=== PATIENT | male | born 1975 | race Caucasian/White ===

== ENCOUNTER 2018-02-21 18:44 | Observation (INO) ==
--- NOTE | 2018-02-21 19:07 | Emergency Department Note ---
Disposition Clinical Impression: Hypokalemia, Hypomagnesemia, Hypocalcemia Disposition: Admitted As Inpatient Condition: Fair Time of Disposition: 23:39 Chest Pain HPI - General Chief Complaint: ED Chest Pain Stated Complaint: "Stabbing Pain between shoulder blades, SOB" Time Seen by Provider: 02/21/18 18:49 Source: patient Limitations: no limitations Vital Signs Reviewed: Yes Nursing Notes Reviewed: Yes - History of Present Illness HPI Narrative: 42-year-old male presents from home for evaluation of intermittent sharp stabbing pain between his shoulder blades and left side of his chest. This is been ongoing for the past 6 weeks. Worse when he attempts to take a deep breath or bending over. Associated with nausea when his pain is at the most intense. He does not recall any particular injury, no unusual lifting or twisting. He also has a headache that will not go away. Described as gradual onset, throbbing, with blurry vision. Last eye exam was several months ago. He does have a primary care physician who is treating her for hypertension however, he has not had a discussion with the primary care physician regarding his symptoms today. PMH: Hypertension Habits: Does not smoke cigarettes. ROS: Positive: As above Negative: Fever, chills, vomiting, palpitations, diaphoresis, abdominal pain, weakness, neck pain Severity scale (1-10): 5 - Related Data Home Medications Medication Instructions Recorded Confirmed Cholecalciferol (Vitamin D3) 2,000 unit PO DAILY 02/21/18 02/21/18 [Vitamin D] RX: Amlodipine Besylate 5 mg PO DAILY 02/21/18 02/21/18 Allergies Allergy/AdvReac Type Severity Reaction Status Date / Time No Known Allergies Allergy Verified 01/16/16 07:37 All systems ED: reviewed and negative except as stated. Review of Systems: As Per HPI Chest Pain PMH - Past Medical History Medical history: Reports: hypertension, kidney stones Surgical history: Reports: no surgical history Psychiatric history: Reports: no psych history - Social History Smoking Status: Never smoker Alcohol use: Reports: none Drug use: Reports: none Physical Exam Vital Signs Reviewed General: Patient is alert, oriented, and in no acute distress. Head: atraumatic, normocephalic Eye: normal appearance, PERRL, EOMI with no vertical or horizontal nystagmus, no scleral icterus, no conjunctival injection ENT: mucous membranes moist, normal external ear exam Neck: normal inspection, trachea midline, full ROM Chest: normal inspection, symmetric chest rise. Tender in left upper ribs in midaxillary line. Respiratory: Good respiratory effort. Bilateral breath sounds are clear without wheezing, crackles, or rhonchi. Cardiovascular: Regular rate and rhythm. No clicks, rubs, gallops, or murmors. Normal heart sounds. Abdomen: Bowel sounds present normoactive. Abdomen is soft, nondistended, and nontender. No guarding or rebound. Musculoskeletal: Spontaneously moving all extremities. No midline or paraspinal tenderness in cervical, thoracic, or lumbar spine. Skin: warm, dry, intact. Neuro: GCS 15. No focal neurologic deficits observed. Sensation to light touch intact and equal bilaterally in upper and lower extremities. Strength 5/5 and equal bilaterally in upper and lower extremities. CN II-XII intact. No facial asymmetry or slurring of speech. Answering all questions briskly and appro priately. Psych: Patient's affect is appropriate for situation. - General Limitations: no limitations General appearance: alert, in no apparent distress Course Course Narrative: Concern given the patient's dyspnea and tachypnea on intake. We will CTA chest. Otherwise, chest pain workup. EKG dated 02/21/2018 at 18:59 interpreted as sinus rhythm with rate of 81. SD 157, QRS 133, QTC 410. Normal axis. Nonspecific ST-T changes. Compared to previous dated 01/11/2016 showed no acute ischemic changes comparison. Serum calcium returned at 5.9. Critically low. We will add additional labs of magnesium, ionized calcium, hepatic panel to assess albumin. Patient has hypocalcemia, hypokalemia, hypomagnesemia. Have replenished potassium, calcium, magnesium area and albumin is low. Uncertain the cause of the above electrolyte derrangements. Concern for possible lymphoma. Leukemia unlikely as hematologic cell lines are not abnormal. CTA chest shows no PE. There is an incidental 4 mm groundglass nodule in the inferior right middle lobe. I discussed the above with the patient and his fiancee at bedside. They are agreeable to admission for continued evaluation and monitoring. I discussed the above with the admitting hospitalist, Dr. Ahn, he is agreeable to admission for continued evaluation and monitoring. We discussed potential hematology oncology consultation. Chest X-Ray 02/21/18 18:50 IMPRESSION: No evidence of acute cardiopulmonary disease. D/ / Tammy Ferguson MD / Tammy Ferguson MD Interpreting Provider: Tammy Ferguson MD Chest CTA 02/21/18 19:35 IMPRESSION: No evidence of pulmonary embolism or acute pulmonary abnormality. Incidental 4 mm ground-glass nodule inferior aspect of the right middle lobe. RECOMMENDATIONS: Fleischner Society guidelines for follow-up and management of incidentally detected pulmonary nodules: Single Solid Nodule: Nodule size less than 6 mm In a low-risk patient, no routine follow-up. In a high-risk patient, optional CT at 12 months. - Low risk patients include individuals with minimal or absent history of smoking and other known risk factors. - High risk patients include individuals with a history or smoking or known risk factors. Radiology 2017 http://pubs.rsna.org/doi/full/10.1148/radiol.[email or web address] D/ : / 02/21/2018 21:04:53 Tammy Ferguson MD / glenny Interpreting Provider: Tammy Ferguson MD Vital Signs Temperature 98.1 F 02/21/18 18:45 Pulse Rate 114 02/21/18 18:45 Respiratory Rate 20 02/21/18 18:45 Blood Pressure 176/99 02/21/18 18:45 O2 Sat by Pulse Oximetry 96 02/21/18 18:45 Temperature 98.3 F 02/21/18 22:50 Pulse Rate 79 02/21/18 22:50 Respiratory Rate 15 02/21/18 22:50 Blood Pressure 163/102 02/21/18 22:50 O2 Sat by Pulse Oximetry 95 02/21/18 22:50 Oxygen Delivery Oxygen Delivery Room Air Chest Pain - Lab Data Result diagrams: 02/21/18 19:01 02/21/18 19:01 Lab Results 02/21/18 02/21/18 02/21/18 Range/Units 19:01 19:01 19:01 WBC 7.7 (4.3-11.1) K/mcL RBC 5.34 (4.19-5.50) M/mcL Hgb 15.7 (12.9-16.9) g/dL Hct 45.6 (37.5-50.1) % MCV 85.4 (83.0-100.0) fL MCH 29.4 (28.0-33.3) pg MCHC 34.4 (31.6-35.5) g/dL RDW 11.9 (11.5-14.5) % Plt Count 214 (140-400) K/mcL MPV 9.4 (9.4-12.4) fL Immature Gran % 0.3 (0-4) % Seg Neutrophils % 58.5 % Lymphocytes % 30.0 % Monocytes % 8.9 % Eosinophils % 2.0 % Basophils % 0.3 % Neutrophils # 4.5 (1.6-8.9) K/mcL Lymphocytes # 2.3 (0.6-4.6) K/mcL Monocytes # 0.7 (0.0-1.3) K/mcL Eosinophils # 0.2 (0.0-0.6) K/mcL Basophils # 0.0 (0.0-0.2) K/mcL PT 12.0 (9.4-12.1) Seconds INR 1.1 APTT 34.4 (26.0-36.0) Seconds Sodium 141 (136-145) mEq/L Potassium 2.6 L (3.5-5.1) mEq/L Chloride 119 H (98-107) mEq/L Carbon Dioxide 18 L (23-29) mEq/L BUN 10 (6-20) mg/dL Creatinine 0.58 L (0.70-1.30) mg/dL Est GFR ( Amer) > 60 (> 60) Est GFR (Non-Af Amer) > 60 (> 60) BUN/Creatinine Ratio 17 (6-26) Glucose 91 (70-105) mg/dL Calculated Osmolality 291 (280-300) Calcium 5.9 L* (8.6-10.3) mg/dL Venous Ioniz Calcium (1.15-1.35) mmol/L Magnesium 1.3 L (1.6-2.6) mg/dL Total Bilirubin 0.3 (0.3-1.0) mg/dL Direct Bilirubin 0.1 (0.0-0.2) mg/dL Indirect Bilirubin 0.2 (0.0-1.2) mg/dL AST 15 (13-39) Units/L ALT 19 (7-52) Units/L Alkaline Phosphatase 44 (34-104) Units/L Troponin I < 0.03 (< 0.04) ng/mL Serum Total Protein 4.4 L (6.4-8.9) g/dL Albumin 2.9 L (3.5-5.7) g/dL Globulin 1.5 L (2.4-3.5) g/dL Albumin/Globulin Ratio 1.9 (1.1-2.2) 02/21/18 Range/Units 20:49 WBC (4.3-11.1) K/mcL RBC (4.19-5.50) M/mcL Hgb (12.9-16.9) g/dL Hct (37.5-50.1) % MCV (83.0-100.0) fL MCH (28.0-33.3) pg MCHC (31.6-35.5) g/dL RDW (11.5-14.5) % Plt Count (140-400) K/mcL MPV (9.4-12.4) fL Immature Gran % (0-4) % Seg Neutrophils % % Lymphocytes % % Monocytes % % Eosinophils % % Basophils % % Neutrophils # (1.6-8.9) K/mcL Lymphocytes # (0.6-4.6) K/mcL Monocytes # (0.0-1.3) K/mcL Eosinophils # (0.0-0.6) K/mcL Basophils # (0.0-0.2) K/mcL PT (9.4-12.1) Seconds INR APTT (26.0-36.0) Seconds Sodium (136-145) mEq/L Potassium (3.5-5.1) mEq/L Chloride (98-107) mEq/L Carbon Dioxide (23-29) mEq/L BUN (6-20) mg/dL Creatinine (0.70-1.30) mg/dL Est GFR ( Amer) (> 60) Est GFR (Non-Af Amer) (> 60) BUN/Creatinine Ratio (6-26) Glucose (70-105) mg/dL Calculated Osmolality (280-300) Calcium (8.6-10.3) mg/dL Venous Ioniz Calcium 1.16 (1.15-1.35) mmol/L Magnesium (1.6-2.6) mg/dL Total Bilirubin (0.3-1.0) mg/dL Direct Bilirubin (0.0-0.2) mg/dL Indirect Bilirubin (0.0-1.2) mg/dL AST (13-39) Units/L ALT (7-52) Units/L Alkaline Phosphatase (34-104) Units/L Troponin I (< 0.04) ng/mL Serum Total Protein (6.4-8.9) g/dL Albumin (3.5-5.7) g/dL Globulin (2.4-3.5) g/dL Albumin/Globulin Ratio (1.1-2.2) Heart Score - Score History: Slightly Suspicious EKG: Non Specific repolarisation Disturbance Age: Less than 45 Risk Factors: 1-2 risk factors Troponin: Less than normal limit HEART Score Total: 2 Critical Care Time Critical Care Time: Yes Total Critical Care Time: 33 Attestation: Acute Hypocalcemia, acute hypokalemia Attestation Statement - Attestation Attestation: Dr. Hernandez note: Patient was seen in conjunction with resident Dr. Camargo. Please see his charting for complete documentation. Assessment [id number] time with the patient and agree with patient's treatment and disposition. Calcium level, potassium, and CT scan results reviewed. Calcium was replaced. Pleuritic pain for many days and now worse.. No hypoxia or tachypnea. CT scan is negative for pulmonary embolism. K replaced; acute endocrine disorder noted
[2018-02-21 19:12] LABS: Basophils % 0.3 %; Eosinophils # 0.2 K/mcL (0.0-0.6); Hematocrit 45.6 % (37.5-50.1); Hemoglobin 15.7 g/dL (12.9-16.9); Immature Granulocytes % 0.3 % (0-4); Lymphocytes # 2.3 K/mcL (0.6-4.6); Mean Corpuscular HGB Conc 34.4 g/dL (31.6-35.5); Mean Corpuscular Hemoglobin 29.4 pg (28.0-33.3); Mean Corpuscular Volume 85.4 fL (83.0-100.0); Mean Platelet Volume 9.4 fL (9.4-12.4); Monocytes # 0.7 K/mcL (0.0-1.3); Monocytes % 8.9 %; Neutrophils # 4.5 K/mcL (1.6-8.9); Platelet Count 214 K/mcL (140-400); Red Blood Count 5.34 M/mcL (4.19-5.50); Red Cell Distribution Width 11.9 % (11.5-14.5); Segmented Neutrophils % 58.5 %
[2018-02-21 19:19] LABS: INR 1.1
[2018-02-21] MEDS ORDERED: Prochlorperazine 10 MG/2 ML VIAL IVP STA (19:20)
[2018-02-21 19:21] LABS: Activated Partial Thrombo Time 34.4 Seconds (26.0-36.0)
[2018-02-21 19:28] LABS: Troponin I < 0.03 ng/mL (< 0.04)
[2018-02-21 19:35] LABS: BUN/Creatinine Ratio 17 (6-26); Blood Urea Nitrogen 10 mg/dL (6-20); Calcium 5.9 mg/dL (8.6-10.3); Carbon Dioxide 18 mEq/L (23-29); Chloride 119 mEq/L (98-107); Glucose 91 mg/dL (70-105); Osmolality,Calculated 291 (280-300); Potassium 2.6 mEq/L (3.5-5.1); Sodium 141 mEq/L (136-145); eGFR For Non-African Americans > 60 (> 60)
[2018-02-21] MEDS ORDERED: Isovue-370 500 ML INFUS..BTL IV ONE (19:35)
[2018-02-21] MEDS ORDERED: Calcium Gluconate 2,000 MG in 0.9 % Sodium Chloride 100 ML IVPB ONE (19:59)
[2018-02-21 20:23] LABS: Alanine Aminotransferase 19 Units/L (7-52); Albumin 2.9 g/dL (3.5-5.7); Albumin/Globulin Ratio 1.9 (1.1-2.2); Alkaline Phosphatase 44 Units/L (34-104); Aspartate Amino Transferase 15 Units/L (13-39); Bilirubin,Direct 0.1 mg/dL (0.0-0.2); Bilirubin,Indirect 0.2 mg/dL (0.0-1.2); Bilirubin,Total 0.3 mg/dL (0.3-1.0); Globulin 1.5 g/dL (2.4-3.5); Magnesium 1.3 mg/dL (1.6-2.6); Total Protein 4.4 g/dL (6.4-8.9)
[2018-02-21 20:52] LABS: VBG Ionized Calcium 1.16 mmol/L (1.15-1.35)
[2018-02-22] MEDS ORDERED: Naloxone 0.4 MG/ML INJ IVP PRN (03:24)
[2018-02-22] MEDS ORDERED: Potassium Chloride 40 MEQ, Lidocaine 1% 2 ML in D5% in Water 500 ML IVPB ONE (03:30)
--- NOTE | 2018-02-22 03:37 | Internal Med History&Physical ---
Date of Encounter: 02/22/18 Time of Encounter: 01:21 Internal Medicine - H&P: HPI Chief complaint: Shortness of breath Admitted From: Emergency Dept Plans for Post Hospital Care: Home History of present illness: Mr. Winters is a 42 year old male Patient presented to the emergency room with shortness of breath and pain b etween his shoulder blades for several weeks particularly with deep breaths and bending over.. He states that the pain became worse on the night he came to the emergency room and decided to come and be evaluated. He states the pain was sharp in nature, is never had anything like it before, and it was associated with left arm charley horse-like pain. He also was developing a headache and had vision changes. He had not tried anything at home to alleviate the pain. In the emergency room, patient's CBC was within normal limits however CMP revealed multiple abnormalities of his electrolytes. Patient had potassium of 2.6, chloride of 119, calcium 5.9, albumin of 2.9 and magnesium of 1.3. Chest x-ray showed no evidence of acute cardiopulmonary disease. Chest CTA showed no evidence of pulmonary embolism or acute pulmonary abnormality. There was incidental finding of a 4 mm ground-glass nodule inferior aspect of the right middle lobe. Patient's EKG showed normal sinus rhythm with no ST changes. Due to his multiple electrolyte abnormalities patient was admitted to the medical floor for further management. Upon my evaluation patient is resting comfortably in the bed. He denies sh ortness of breath and states that the sharp stabbing pain in his back has resolved. His headache and vision changes have also resolved. He denies nausea, vomiting, chest pain, diarrhea, constipation and abdominal pain. 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 He denies dietary changes, and follows up with a physician at his work every year for physical. He denies recent weight loss and weight gain. Past Med Surg Social Fam HX - Past Medical History Medical history: hypertension, kidney stones Psychiatric history: no psych history - Past Surgical History Surgical History: no surgical history Additional surgical history: Rotator cuff torn (r) - Social History Smoking Status: Never smoker Smokeless Tobacco Status: No Alcohol use: none Drug use: none - Family History Mother Name: Gabbie Cast Age at : 55 Cause of : Cancer Hx Family Cardiac Disorders: No Hx Family Respiratory Disorders: No Hx Family Cancer: Yes Internal Medicine - H&P: Meds Amlodipine Besylate 5 mg PO DAILY 02/21/18 [History] Cholecalciferol (Vitamin D3) [Vitamin D] 2,000 unit PO DAILY 02/21/18 [History] Allergy/AdvReac Type Severity Reaction Status Date / Time No Known Allergies Allergy Verified 01/16/16 07:37 All Systems PM: A 10-system review of systems was performed and is negative for pertinent findings except as documented above in the HPI. - Constitutional Vitals: Temp Pulse Resp BP Pulse Ox 98.3 F 79 15 163/102 95 02/21/18 22:50 02/21/18 22:50 02/21/18 22:50 02/21/18 22:50 02/21/18 22:50 General appearance: Present: cooperative, A&O X 3, pleasant, no acute distress, answers questions appropriately Exam: - - Head Head exam: Present: normal inspection - Eye Eye exam: Present: EOMI, normal appearance - Neck Neck exam general surgery: Absent: tenderness - Respiratory Respiratory exam: Present: CTAB. Absent: rales, respiratory distress, wheezes - Cardiovascular Cardiovascular exam: Present: RRR. Absent: diastolic murmur, systolic murmur - GI/Abdominal GI/Abdominal exam: Present: normal bowel sounds, soft. Absent: tenderness - Extremities Exam Extremities exam: Present: warm, radial pulses palpable and symmetrical. Absent: calf tenderness, pedal edema, tenderness - Back Exam Back exam: Absent: tenderness - Neurological Exam Neurological exam: Present: no focal deficits, strengths equal and symetr throughout. Absent: motor sensory deficit, facial droop, speech deficit - Skin Skin exam: Present: dry, normal color, warm Internal Med - H&P Results - Labs CBC & Chem 7: 02/21/18 19:01 02/21/18 19:01 Labs: Short CBC 02/21/18 Range/Units 19:01 WBC 7.7 (4.3-11.1) K/mcL Hgb 15.7 (12.9-16.9) g/dL Hct 45.6 (37.5-50.1) % Plt Count 214 (140-400) K/mcL Neutrophils # 4.5 (1.6-8.9) K/mcL BMP 02/21/18 19:01 Sodium 141 Potassium 2.6 L Chloride 119 H Carbon Dioxide 18 L BUN 10 Creatinine 0.58 L Glucose 91 Calcium 5.9 L* Cardiac Enzymes 02/21/18 Range/Units 19:01 Troponin I < 0.03 (< 0.04) ng/mL Liver Function 02/21/18 Range/Units 19:01 Total Bilirubin 0.3 (0.3-1.0) mg/dL Direct Bilirubin 0.1 (0.0-0.2) mg/dL AST 15 (13-39) Units/L ALT 19 (7-52) Units/L Alkaline Phosphatase 44 (34-104) Units/L Albumin 2.9 L (3.5-5.7) g/dL - Impressions ITS Impressions Chest X-Ray 02/21/18 18:50 IMPRESSION: No evidence of acute cardiopulmonary disease. D/ / Tammy Ferguson MD / Tammy Ferguson MD Interpreting Provider: Tammy Ferguson MD Chest CTA 02/21/18 19:35 IMPRESSION: No evidence of pulmonary embolism or acute pulmonary abnormality. Incidental 4 mm ground-glass nodule inferior aspect of the right middle lobe. RECOMMENDATIONS: Fleischner Society guidelines for follow-up and management of incidentally detected pulmonary nodules: Single Solid Nodule: Nodule size less than 6 mm In a low-risk patient, no routine follow-up. In a high-risk patient, optional CT at 12 months. - Low risk patients include individuals with minimal or absent history of smoking and other known risk factors. - High risk patients include individuals with a history or smoking or known risk factors. Radiology 2017 http://pubs.rsna.org/doi/full/10.1148/radiol.[email or web address] D/ : / 02/21/2018 21:04:53 Tammy Ferguson MD / glenny Interpreting Provider: Tammy Ferguson MD - Assessment and plan (1) Electrolyte abnormality Current Visit: Yes Status: Acute Assessment and plan: Multiple electrolyte abnormalities, including potassium, calcium and magnesium. Patient received replenishment in the ER for these. Unclear etiology. 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 Has not been told if he has significant exposure to this recently. Recheck labs in the AM Checking PTH Consider oncology or endocrine consultation (2) Hypocalcemia Current Visit: Yes Status: Acute Assessment and plan: Patient's calcium was 5.9 in the ER, with an ionized calcium of 1.16. Patient denies unusual diet. Patient was given calcium gluconate 2g in the ER. Vitamin D level ordered in ER, results still pending at this time. Check PTH Recheck calcium in the AM. Follow up vitamin D level. (3) Hypokalemia Current Visit: Yes Status: Acute Assessment and plan: Patient received 40mEq in the ER. Repeat labs in the morning Giving an additional 40mEq now. Check magnesium. (4) Hyperchloremia Current Visit: Yes Status: Acute Assessment and plan: Chloride level elevated to 119. Patient has seemingly normal kidney function and does not have diabetes which could be potential causes. Sodium levels within normal limits. Repeat labs in the morning (5) Pulmonary nodule Current Visit: Yes Status: Acute Assessment and plan: 4mm nodule in the inferior right middle lobe. Can not rule out cancer etiology. Consider oncology consultation. (6) Hypomagnesemia Current Visit: Yes Status: Acute Assessment and plan: Magnesium given in the ER. Recheck labs in AM. (7) History of hypertension Current Visit: Yes Status: Acute Assessment and plan: Continue home meds (8) DVT prophylaxis Current Visit: Yes Status: Acute Assessment and plan: Subcutaneous Heparin - Time Spent With Patient Total time spent is greater than 50% in coordination of care (as documented) at patient's floor/unit and/or counseling patient:
[2018-02-22 05:41] LABS: Hematocrit 43.3 % (37.5-50.1); Hemoglobin 15.2 g/dL (12.9-16.9); Mean Corpuscular HGB Conc 35.1 g/dL (31.6-35.5); Mean Corpuscular Hemoglobin 29.8 pg (28.0-33.3); Mean Corpuscular Volume 84.9 fL (83.0-100.0); Mean Platelet Volume 9.6 fL (9.4-12.4); Platelet Count 188 K/mcL (140-400); Red Cell Distribution Width 12.1 % (11.5-14.5)
[2018-02-22 06:18] LABS: Magnesium 2.3 mg/dL (1.6-2.6); Phosphorous 3.7 mg/dL (2.7-4.5)
[2018-02-22] MEDS: *HR* Heparin 5,000 UNIT/ML VIAL SQ SCH ×2 (06:22→20:26)
[2018-02-22 06:35] LABS: Alanine Aminotransferase 28 Units/L (7-52); Albumin 4.1 g/dL (3.5-5.7); Albumin/Globulin Ratio 1.6 (1.1-2.2); Alkaline Phosphatase 57 Units/L (34-104); Aspartate Amino Transferase 20 Units/L (13-39); BUN/Creatinine Ratio 18 (6-26); Bilirubin,Total 0.6 mg/dL (0.3-1.0); Blood Urea Nitrogen 14 mg/dL (6-20); Calcium 9.1 mg/dL (8.6-10.3); Carbon Dioxide 23 mEq/L (23-29); Chloride 107 mEq/L (98-107); Globulin 2.5 g/dL (2.4-3.5); Glucose 107 mg/dL (70-105); Osmolality,Calculated 287 (280-300); Sodium 138 mEq/L (136-145); Total Protein 6.6 g/dL (6.4-8.9); eGFR For Non-African Americans > 60 (> 60)
--- NOTE | 2018-02-22 08:13 | Internal Med Progress Note ---
<Tika Badillo - Last Filed: 02/22/18 12:47> Hospitalist Progress Note - Encounter Date of Encounter: 02/22/18 - Exam Vitals: Temp Pulse Resp BP Pulse Ox 98.1 F 71 15 139/87 94 02/22/18 07:55 02/22/18 07:55 02/22/18 05:07 02/22/18 07:55 02/22/18 07:55 - Time Spent with Patient Total time spent is greater than 50% in coordination of care (as documented) at patient's floor/unit and/or counseling patient: Internal Medicine: Result - Labs CBC & Chem 7: 02/22/18 04:39 02/22/18 11:27 Labs: Short CBC 02/21/18 02/22/18 Range/Units 19:01 04:39 WBC 7.7 7.2 (4.3-11.1) K/mcL Hgb 15.7 15.2 (12.9-16.9) g/dL Hct 45.6 43.3 (37.5-50.1) % Plt Count 214 188 (140-400) K/mcL Neutrophils # 4.5 (1.6-8.9) K/mcL BMP 02/21/18 02/22/18 19:01 04:39 Sodium 141 138 Potassium 2.6 L 4.0 D Chloride 119 H 107 Carbon Dioxide 18 L 23 BUN 10 14 Creatinine 0.58 L 0.77 Glucose 91 107 H Calcium 5.9 L* 9.1 Cardiac Enzymes 02/21/18 Range/Units 19:01 Troponin I < 0.03 (< 0.04) ng/mL Liver Function 02/21/18 02/22/18 Range/Units 19:01 04:39 Total Bilirubin 0.3 0.6 (0.3-1.0) mg/dL Direct Bilirubin 0.1 (0.0-0.2) mg/dL AST 15 20 (13-39) Units/L ALT 19 28 (7-52) Units/L Alkaline Phosphatase 44 57 (34-104) Units/L Albumin 2.9 L 4.1 (3.5-5.7) g/dL - ABG Interpretation ABG results: PT/INR, D-dimer PT 12.0 Seconds (9.4-12.1) 02/21/18 19:01 - Impressions Impressions Chest X-Ray 02/21/18 18:50 IMPRESSION: No evidence of acute cardiopulmonary disease. D/ / Tammy Ferguson MD / Tammy Ferguson MD Interpreting Provider: Tammy Ferguson MD Chest CTA 02/21/18 19:35 IMPRESSION: No evidence of pulmonary embolism or acute pulmonary abnormality. Incidental 4 mm ground-glass nodule inferior aspect of the right middle lobe. RECOMMENDATIONS: Fleischner Society guidelines for follow-up and management of incidentally detected pulmonary nodules: Single Solid Nodule: Nodule size less than 6 mm In a low-risk patient, no routine follow-up. In a high-risk patient, optional CT at 12 months. - Low risk patients include individuals with minimal or absent history of smoking and other known risk factors. - High risk patients include individuals with a history or smoking or known risk factors. Radiology 2017 http://pubs.rsna.org/doi/full/10.1148/radiol.6906396616 D/ : / 02/21/2018 21:04:53 Tammy Ferguson MD / glenny Interpreting Provider: Tammy Ferguson MD Consult Discharge Plan - Plan Referrals: Juanita Mosher, [employer] [Primary Care Provider] - - Attending Attestation I examined this patient and my medical decision-making was reviewed with the Resident Physician Dr Pyle. I agree with the documented findings, disposition and treatment plan as described except to the extent set forth below. Mr Winters has a pmhx kidney stones and HTN. He presented with pain between shoulder blades for several weeks, worse yesterday with uncontrolled pain, left arm pain, hernandez and vision change. He was found to have low mag, K+ and calcium. He is being observed for htn urgency and multiple electrolyte abnormalities of uk etiology. awake, no further shoulder blade pain, chest pain, pressure, hernandez or vision changes. no sob, orthopnea, le edema. No muscle cramps or muscle weakness. gen- alert, awake,appears stated age eyes- pupils equal round neck- no lad cv- reg rate and rhythm, normal s1,s2, no murmurs appreciated, no le edema, no jvd lungs- ctabl, no wheezing, rhonchi or crackles, normal resp effort on ra neuro- AAOx3, CN grossly intact, no focal deficits HTN urgency with chest pain radiation to left arm, hernandez and vision changes with BPs 170s/100s CTA unremarkable for pe, mediastinal LAD, thoracic aorta abnormality, pleural effusion or pulmonary consolidation resolved, now normotensive -ischemic work up, cont tele talat with electrolyte abnormalities -cont home norvasc and monitor for dosing adjustments required, will need outpt fu Hypomagnemeia Hypokalemia Hypocalcemia -resolved with iv repletion etiology uknonw -check urine studies, pth, vit d level, cont to monitor for changes Incidental RML 4mm nodule on CTA -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 Patient denies any chest pain, shortness of breath, or orthopnea. No new complaints. Electrolytes corrected after replacement. Unknown cause at this time for patient's electrolyte abnormalities. - Exam Vitals: Temp Pulse Resp BP Pulse Ox 98.1 F 71 15 139/87 94 02/22/18 07:55 02/22/18 07:55 02/22/18 05:07 02/22/18 07:55 02/22/18 07:55 Exam: Constitutional: No acute distress, resting comfortably in bed. Cardiovascular: Regular rate and rhythm. No murmurs Respiratory: Clear to auscultation bilaterally Extremities: Pulses palpable in upper extremities. No pedal edema. Neurological: Alert and oriented 3. No tremors. No facial asymmetry. No focal weakness. SKin: Observed skin areas are clean dry and intact. Psych: Normal speech, coherent thought process - Assessment and Plan (1) Electrolyte abnormality Current Visit: Yes Status: Acute Assessment and Plan: Hypocalcemia, hyperchloremia, hypokalemia, and hypomagnesemia all resolved after potassium and magnesium were replaced. Unknown etiology at this time for patient's several electrolyte abnormalities. Patient denies any recent fevers, vomiting, diarrhea, diuretic use, or any history of renal dysfunction. Patient's initial symptoms of chest pain radiating to the left arm and to his back have subsided. currently asymptomatic. Plan: repeated CMP today, two most recent panels reveal normal electrolyte ranges Possibilities for initial electrolyte abnormalities include renal etiology vs. lab error. Will continue to monitor and obtain urine studies for further evaluation (2) Chest pain Current Visit: Yes Status: Acute Assessment and Plan: Patient initially did presented to the emergency department with chest pain and shortness of breath. Stated the pain radiated to his left arm and to his back between shoulder blades. This is also associated with changes in vision. EKG, troponins, and chest x-ray were negative for any acute pathology. CTA was negative for PE. Patient is currently symptomatically, he is no longer complaining of substernal chest pain. Plan: 42-year-old male with risk factors first cardiac vascular disease including hypertension and positive family history of IA. Patient had shortness of breath and chest pain on presentation. Initial workup negative, however will further evaluate with stress testing and echo. (3) Pulmonary nodule Current Visit: Yes Status: Acute Assessment and Plan: Patient not a smoker, therefore not high risk. However, due to occupation al risk recommend obtaining repeat CT scan in 12 months. (4) History of hypertension Current Visit: Yes Status: Acute Assessment and Plan: Currently on home dose amlodipine 5mg. BP readings since admission have been around 130s/80s. Will continue to monitor for hypertensive urgency (5) DVT prophylaxis Current Visit: Yes Status: Acute Assessment and Plan: subQ heparin - Time Spent with Patient Total time spent is greater than 50% in coordination of care (as documented) at patient's floor/unit and/or counseling patient: Internal Medicine: Result - Labs CBC & Chem 7: 02/22/18 04:39 02/22/18 11:27 Labs: Short CBC 02/21/18 02/22/18 Range/Units 19:01 04:39 WBC 7.7 7.2 (4.3-11.1) K/mcL Hgb 15.7 15.2 (12.9-16.9) g/dL Hct 45.6 43.3 (37.5-50.1) % Plt Count 214 188 (140-400) K/mcL Neutrophils # 4.5 (1.6-8.9) K/mcL BMP 02/21/18 02/22/18 19:01 04:39 Sodium 141 138 Potassium 2.6 L 4.0 D Chloride 119 H 107 Carbon Dioxide 18 L 23 BUN 10 14 Creatinine 0.58 L 0.77 Glucose 91 107 H Calcium 5.9 L* 9.1 Cardiac Enzymes 02/21/18 Range/Units 19:01 Troponin I < 0.03 (< 0.04) ng/mL Liver Function 02/21/18 02/22/18 Range/Units 19:01 04:39 Total Bilirubin 0.3 0.6 (0.3-1.0) mg/dL Direct Bilirubin 0.1 (0.0-0.2) mg/dL AST 15 20 (13-39) Units/L ALT 19 28 (7-52) Units/L Alkaline Phosphatase 44 57 (34-104) Units/L Albumin 2.9 L 4.1 (3.5-5.7) g/dL - ABG Interpretation ABG results: PT/INR, D-dimer PT 12.0 Seconds (9.4-12.1) 02/21/18 19:01 - Impressions Impressions Chest X-Ray 02/21/18 18:50 IMPRESSION: No evidence of acute cardiopulmonary disease. D/ / Tammy Ferguson MD / Tammy Ferguson MD Interpreting Provider: Tammy Ferguson MD Chest CTA 02/21/18 19:35 IMPRESSION: No evidence of pulmonary embolism or acute pulmonary abnormality. Incidental 4 mm ground-glass nodule inferior aspect of the right middle lobe. RECOMMENDATIONS: Fleischner Society guidelines for follow-up and management of incidentally detected pulmonary nodules: Single Solid Nodule: Nodule size less than 6 mm In a low-risk patient, no routine follow-up. In a high-risk patient, optional CT at 12 months. - Low risk patients include individuals with minimal or absent history of smoking and other known risk factors. - High risk patients include individuals with a history or smoking or known risk factors. Radiology 2017 http://pubs.rsna.org/doi/full/10.1148/radiol.4656163578 D/ /21/2018 21:04:53 Tammy Ferguson MD / glenny Interpreting Provider: Tammy Ferguson MD <Jitendra Pyle N - Last Filed: 02/22/18 13:19> (2) Chest pain Qualifiers: Chest pain type: chest pain due to myocardial ischemia Ischemic chest pain type: unstable angina pectoris Qualified Code(s): I20.0 - Unstable angina
[2018-02-22] MEDS: amLODIPine 5 MG TABLET PO SCH (09:41)
[2018-02-22 12:13] LABS: Troponin I < 0.03 ng/mL (< 0.04)
[2018-02-22 12:25] LABS: Alanine Aminotransferase 29 Units/L (7-52); Albumin 4.3 g/dL (3.5-5.7); Albumin/Globulin Ratio 1.7 (1.1-2.2); Alkaline Phosphatase 63 Units/L (34-104); Aspartate Amino Transferase 21 Units/L (13-39); BUN/Creatinine Ratio 19 (6-26); Bilirubin,Total 0.7 mg/dL (0.3-1.0); Blood Urea Nitrogen 14 mg/dL (6-20); Calcium 9.3 mg/dL (8.6-10.3); Carbon Dioxide 24 mEq/L (23-29); Chloride 106 mEq/L (98-107); Globulin 2.6 g/dL (2.4-3.5); Glucose 103 mg/dL (70-105); Osmolality,Calculated 287 (280-300); Potassium 4.1 mEq/L (3.5-5.1); Sodium 138 mEq/L (136-145); Total Protein 6.9 g/dL (6.4-8.9); eGFR For Non-African Americans > 60 (> 60)
[2018-02-22 13:48] LABS: Bilirubin,Urine Negative (Negative); Blood,Urine Negative (Negative); Clarity,Urine Clear (Clear); Color,Urine Yellow (Yellow); Glucose,Urine (UA) Normal (Normal); Ketones,Urine Negative (Negative); Leukocyte Esterase,Urine Negative (Negative); Nitrite,Urine Negative (Negative); PH,Urine 6.5 pH Units (5.0-8.0); Protein,Urine Negative (Neg-Trace); Specific Gravity,Urine 1.015 (1.010-1.025); Urobilinogen,Urine Normal (Normal)
[2018-02-22 14:24] LABS: Potassium,Urine 48.7 mEq/L; Sodium, Urine 120.3 mEq/L
[2018-02-22 14:25] LABS: Amphetamine Screen,Urine Negative ng/mL (Cutoff=1000); Barbiturate Screen,Urine Negative ng/mL (Cutoff=200); Benzodiazepines Screen,Urine Negative ng/mL (Cutoff=200); Cannabinoid Screen,Urine Negative ng/mL (Cutoff = 50); Cocaine Screen,Urine Negative ng/mL (Cutoff= 300); Opiate Screen,Urine Negative ng/mL (Cutoff=300); Phencyclidine Screen,Urine Negative ng/mL (Cutoff=25)
--- NOTE | 2018-02-22 15:32 | Electrocardiograph Report ---
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
[2018-02-23 04:31] LABS: Basophils % 0.4 %; Eosinophils # 0.2 K/mcL (0.0-0.6); Eosinophils % 1.8 %; Hematocrit 48.4 % (37.5-50.1); Hemoglobin 16.3 g/dL (12.9-16.9); Immature Granulocytes % 0.5 % (0-4); Lymphocytes # 2.3 K/mcL (0.6-4.6); Mean Corpuscular HGB Conc 33.7 g/dL (31.6-35.5); Mean Corpuscular Hemoglobin 29.1 pg (28.0-33.3); Mean Corpuscular Volume 86.4 fL (83.0-100.0); Mean Platelet Volume 9.6 fL (9.4-12.4); Monocytes # 0.7 K/mcL (0.0-1.3); Monocytes % 8.3 %; Platelet Count 201 K/mcL (140-400)
[2018-02-23 04:45] LABS: BUN/Creatinine Ratio 16 (6-26); Blood Urea Nitrogen 13 mg/dL (6-20); Calcium 9.1 mg/dL (8.6-10.3); Carbon Dioxide 23 mEq/L (23-29); Chloride 106 mEq/L (98-107); Glucose 102 mg/dL (70-105); Magnesium 2.1 mg/dL (1.6-2.6); Osmolality,Calculated 286 (280-300); Potassium 3.9 mEq/L (3.5-5.1); Sodium 138 mEq/L (136-145); eGFR For Non-African Americans > 60 (> 60)
[2018-02-23] MEDS: *HR* Heparin 5,000 UNIT/ML VIAL SQ SCH (05:02)
[2018-02-23 06:13] VITALS: BP 129/83
--- NOTE | 2018-02-23 10:11 | Discharge Summary ---
<Avel Shaffer - Last Filed: 02/23/18 17:58> - NOTES TO OUTPATIENT PROVIDER Notes to Outpatient Provider: Loni had atypical chest pain was unable to stay for stress test due to work obligations. Would recommened outpatient stress test. Patient had 4mm nodule on CT scan - will require follow up. Orders not resulted at time of discharge: Pending orders 02/22/18 11:21 NM yamil perf SPECT multi [NM] Routine 02/23/18 07:45 SP exercise nuclear stress Routine Date of Encounter: 02/23/18 Time of Encounter: 10:09 - Discharge Diagnosis (1) Atypical chest pain Priority: Primary Status: Resolved (2) Hypokalemia Priority: Primary Status: Resolved (3) Hypomagnesemia Priority: Primary Status: Resolved (4) Hypocalcemia Priority: Primary Status: Resolved (5) History of hypertension Priority: Secondary Status: Chronic (6) Pulmonary nodule Priority: Secondary Status: Suspected Hospital course: Mr. Winters is a 42 year old male presenting to [facility] for atypical chest pain between his shoulder blades radiating into his left arm. Patient was noted in the ED to have several electrolyte abnormalities including hypocalcemia, hypokalemia, hypomagnesemia -all which were replaced in the ED. Chemistry panel today shows electrolytes to be within normal limits. Patient scheduled to undergo stress testing today, but due to body habitus requires a 2 day nuclear stress test. Patient states that he must return home or that he will lose his job if he takes any more days off work. Shared decision making utilized with the patient regarding further hospital stay versus discharge home and plan was agreed upon for home discharge with PCP follow-up and further specialist referral for stress testing as well as repeat imaging for monitoring of a 4 mm pulmonary nodule found in hospital. 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 Patient is hemodynamically stable at time of discharge. Patient admits to headache which he states is due to changes in his normal level of activity and food consumption. The patient denies vision change, ringing in the ears, neck or back pain, chest pain/shortness of breath, abdominal pain, nausea/vomiting, hematuria/hematochezia, dizziness/lightheadedness/difficulty with ambulation, or numbness and paresthesias. Patient was discharged home with ED return precautions as well as instructions for necessary follow-up as listed above. Patient verbalizes understanding and agreement with this plan. Discharge discussed with: patient, family - Time Spent with Patient Total time spent providing and/or coordinating discharge services: Less than 30 minutes - Discharge Medications Home Medications: RX: Amlodipine Besylate 5 mg PO DAILY 02/21/18 [History] RX: Cholecalciferol (Vitamin D3) [Vitamin D3] 2,000 unit PO DAILY 02/21/18 [History] RX: [place]-3/Dha/Epa/Fish Oil [Fish Oil 1,000 mg Softgel] 3 cap PO DAILY 02/22/18 [History] Allergies/Adverse Reactions: Allergy/AdvReac Type Severity Reaction Status Date / Time No Known Allergies Allergy Verified 01/16/16 07:37 Date of admission: 02/21/18 22:30 Primary care physician: Juanita Mosher CNP Discharging clinician: Avel Shaffer Anticipated date of discharge: 02/23/18 - Constitutional Vitals: Temp Pulse Resp BP Pulse Ox 97.8 F 75 15 129/83 98 02/23/18 06:12 02/23/18 06:12 02/23/18 06:12 02/23/18 06:12 02/23/18 06:12 General appearance: Present: cooperative, A&O X 3, pleasant, no acute distress, answers questions appropriately Exam: Constitutional: No acute distress, resting comfortably in bed. Cardiovascular: Regular rate and rhythm. No murmurs Respiratory: Clear to auscultation bilaterally Extremities: Pulses palpable in upper extremities. No pedal edema. Neurological: Alert and oriented 3. No tremors. No facial asymmetry. No focal weakness. SKin: Observed skin areas are clean dry and intact. Psych: Normal speech, coherent thought process - Head Head exam: Present: atraumatic, normocephalic - Eye Eye exam: Present: EOMI, normal appearance, PERRL. Absent: scleral icterus - ENT ENT exam: Present: mucous membranes moist - Neck Neck exam general surgery: Present: full ROM, trachea midline - Respiratory Respiratory exam: Present: CTAB. Absent: accessory muscle use, decreased breath sounds, prolonged expiratory phase, rales, respiratory distress, rhonchi, stridor, wheezes, tachypnea - Cardiovascular Cardiovascular exam: Present: RRR, +S1, +S2. Absent: diastolic murmur, JVD, +S3, +S4, systolic murmur - GI/Abdominal GI/Abdominal exam: Present: normal bowel sounds, soft. Absent: distended, firm, guarding, hepatomegaly, rebound, rigid, tenderness - Extremities Exam Extremities exam: Present: normal inspection, warm, radial pulses palpable and symmetrical. Absent: cyanotic, joint swelling, pedal edema, tenderness - Neurological Exam Neurological exam: Present: alert, oriented X3, no focal deficits. Absent: facial droop, speech deficit - Psychiatric Psychiatric exam: Present: normal affect, normal mood - Skin Skin exam: Present: dry, intact, normal color, warm - Patient Status Disposition: Home, Self-Care Condition: Good Functional capacity at discharge: independent ambulation Overall status at discharge: patient is back to baseline - Discharge Instructions Instructions: Chest Pain (DC) Follow Up With: Juanita Mosher CNP [Primary Care Provider] - 03/04/18 2:30 pm (Within one week ) Additional Instructions: Please follow up with your primary care provider Please return to hospital for any new or worsening symptoms Your primary care physician's office will need to schedule a stress test, and follow up for pulmonary nodule - your primary care provider will assist you with this. - Diet and Activity Activity: increase activity as tolerated Diet: advance to your usual diet <Chapo Garzon - Last Filed: 02/23/18 18:54> Date of Encounter: 02/23/18 - Discharge Diagnosis (1) Hypokalemia Status: Resolved (2) Hypomagnesemia Status: Resolved (3) Chest pain Priority: Secondary Status: Acute Qualifiers: Chest pain type: unspecified Qualified Code(s): R07.9 - Chest pain, unspecified (4) Hypertension Priority: Secondary Status: Chronic Qualifiers: Hypertension type: essential hypertension Qualified Code(s): I10 - Essential (primary) hypertension Hospital course: Mr. Winters is a 42 year old male - Time Spent with Patient Total time spent providing and/or coordinating discharge services: Date of admission: 02/21/18 22:30 Primary care physician: Juanita Mosher CNP - Constitutional Vitals: Temp Pulse Resp BP Pulse Ox 97.8 F 75 15 129/83 98 02/23/18 06:12 02/23/18 06:12 02/23/18 06:12 02/23/18 06:12 02/23/18 06:12 - Attending Attestation I examined this patient and my medical decision-making was reviewed with the Resident Physician on 02/23/18. I agree with the documented findings, disposition and treatment plan as described except to the extent set forth below. Mr Winters has been in observation due to chest pain and presumed electrolyte imbalance. He is now at baseline and has had no further pain. He wishes to complete further work up outpatient. His chest pain was atypical and he had no associated symptoms. His troponin was negative. EKG and echo normal. He will be discharged home for further outpatient work up. Exam alert Comfortable Mucus membranes dry Heart not tachy No wheeze Abd soft Plan D/C home Outpatient stress test.
[2018-02-23] MEDS: amLODIPine 5 MG TABLET PO SCH (10:25)
== END 2018-02-23 11:01 | disposition home or self-care (01) ==
LOC: 2NENU 18:44 → EMEROOARM 18:44 → SUATTDRO 22:30 → 2NENU 22:45
PROVIDERS: ADMIT Family Medicine; ATTEND Internal Medicine